=== PATIENT | female | born 1990 | race American Indian/Alaskan Native ===

== ENCOUNTER 2021-03-16 10:41 | Outpatient (CLI) | payer MEDICAID ==
[2021-03-16] MEDS ORDERED: LACTATED RINGERS 500 ML IV ONE (11:14)
[2021-03-16 14:20] LABS: Bilirubin,Urine NEG (Negative); Blood,Urine NEG (Negative); Color,Urine Yellow (Yellow); Mucus,Urine FEW /HPF; Protein,Urine <15 mg/dL mg/dL (Negative); Urobilinogen,Urine < 2.0 mg/dL (<2.0)
--- NOTE | 2021-03-16 15:51 | Ultrasound Report ---
ULTRASOUND OBSTETRIC LIMITED INDICATION / CLINICAL INFORMATION: labor. Clinical Gestational Age (GA) in weeks, days: 33 weeks 2 days TECHNIQUE: Transabdominal. COMPARISON: None available. FINDINGS: Single live intrauterine in breech presentation. heart rate measures 153 bpm. BREATHING MOVEMENT = 2 GROSS BODY MOVEMENT = 2 TONE = 2 QUALITATIVE AMNIOTIC FLUID VOLUME = 2 TOTAL BIOPHYSICAL SCORE = 8/8 AMNIOTIC FLUID INDEX (cm) = 15.7 (normal = 7-24 cm) PLACENTA: Left lateral placenta demonstrated. There is no evidence of placental abruption. The cervic al os is not included. ADDITIONAL FINDINGS: None. IMPRESSION: 1. Single live intrauterine in breech presentation. BPP of 8/8. 2. No significant abnormality. No evidence of placental abruption. Signer Name: Elder Bravo MD Signed: 03/16/2021 3:47 PM Workstation Name: [email or web address]
== END 2021-03-16 14:30 | disposition home or self-care (01) ==
LOC: TRG 10:41 → APU 10:43 → TRG 14:30
PROVIDERS: ATTEND Obstetrics & Gynecology
DX: Z34.93 Encounter for supervision of normal pregnancy, unspecified, third trimester (principal); Z3A.33 33 weeks gestation of pregnancy
CPT/HCPCS: 36415; 59025; 76815; 76819; 81001; 84112

== ENCOUNTER 2021-04-09 06:47 | Inpatient (IN) | payer MEDICAID ==
[2021-04-09] MEDS ORDERED: LACTATED RINGERS 1,000 ML ONE (07:16)
[2021-04-09] MEDS ORDERED: BICITRA ORAL LIQD 30ML PO NR (07:31)
[2021-04-09] MEDS ORDERED: METOCLOPRAMIDE 10 MG/2 ML INJ IV NR (07:31)
[2021-04-09] MEDS ORDERED: FAMOTIDINE 20 MG/2 ML INJ IV NR (07:31)
[2021-04-09] MEDS ORDERED: BUTORPHANOL 2 MG/1 ML INJ IV PRN (07:33)
[2021-04-09] MEDS ORDERED: ACETAMINOPHEN 325 MG TAB PO PRN ×2 (07:33→11:00)
[2021-04-09] MEDS ORDERED: NalbUPHINE 10 MG/1 ML INJ IV PRN (07:33)
[2021-04-09] MEDS ORDERED: LACTATED RINGERS 1,000 ML IV SCH ×2 (07:45→23:00)
[2021-04-09 07:54] LABS: Basophils % (Auto) 0.1 % (0.0-1.8); Eosinophils # (Auto) 0.1 K/mm3 (0.0-0.4); Eosinophils % (Auto) 0.8 % (0.0-4.3); Hemoglobin 12.6 gm/dl (10.1-14.3); Lymphocytes # (Auto) 2.1 K/mm3 (1.2-5.4); Lymphocytes % (Auto) 20.1 % (13.4-35.0); Mean Corpuscular HGB Conc 33 % (30-34); Mean Corpuscular Volume 84 fl (79-97); Monocytes # (Auto) 1.2 K/mm3 (0.0-0.8); Monocytes % (Auto) 11.6 % (0.0-7.3); Platelet Count 272 K/mm3 (140-440); Red Blood Count 4.52 M/mm3 (3.65-5.03); Red Cell Distribution Width 13.7 % (13.2-15.2)
[2021-04-09] MEDS ORDERED: ceFAZolin/STERILE WATER 2 GM/20 ML SYRINGE IV ONE (07:56)
[2021-04-09] MEDS ORDERED: KETAMINE/STERILE WATER 50 MG/ML SYRINGE ONE (07:56)
[2021-04-09] MEDS ORDERED: SUCCINYLCHOLINE CHLORIDE 200 MG/10 ML INJ MDV ONE (07:56)
[2021-04-09] MEDS ORDERED: propofoL 200 MG/20 ML VIAL IV ONE (07:56)
[2021-04-09] MEDS ORDERED: OXYTOCIN DRIP 30 UNITS/500 ML BAG IV SCH ×2 (08:00→11:00)
[2021-04-09] MEDS ORDERED: ceFAZolin/Water 2 GM/20 ML 2 GM/20 ML SYRINGE IV NR (08:00)
[2021-04-09] MEDS ORDERED: SODIUM CHLORIDE 0.9% IRR 1,500 ML BOTTLE IR ONE (08:00)
[2021-04-09] MEDS ORDERED: WATER FOR IRRIG STERILE 1,500 ML BOTTLE IR ONE (08:00)
[2021-04-09] MEDS ORDERED: SODIUM CHLORIDE 0.9% 500 ML 500 ML ONE (08:06)
[2021-04-09] MEDS ORDERED: dexAMETHasone 20 MG/5 ML VIAL ONE (08:14)
[2021-04-09] MEDS ORDERED: ONDANSETRON 4 MG/2 ML INJ ONE ×2 (08:15)
[2021-04-09] MEDS ORDERED: KETOROLAC 30 MG/1 ML INJ ONE (08:15)
[2021-04-09] MEDS ORDERED: HYDROmorphone 1 MG/1 ML INJ ONE ×2 (08:24)
[2021-04-09] MEDS ORDERED: LIDOCAINE MPF (2%) 20 MG/1 ML VIAL 5 ML ONE (08:42)
[2021-04-09] MEDS ORDERED: BUPIVACAINE/PF (0.25%) 2.5 MG/ML 30 ML VIAL INFILTRATI ONE ×2 (08:57)
--- NOTE | 2021-04-09 10:08 | Anesthesia Day of Surgery ---
Anesthesia Day of Surgery - Day of Surgery Patient Examined: Yes Patient H&P Reviewed: Yes Patient is NPO: No (3 AM) Beta Blockers: No Cardiac Clearance: No Pulmonary Clearance: No Denton's Test: Negative
--- NOTE | 2021-04-09 10:10 | Anesthesia Consultation ---
Anesthesia Consult and Med Hx Date of service: 04/09/21 - Airway Anesthetic Teeth Evaluation: Poor ROM Head & Neck: Adequate Mental/Hyoid Distance: Adequate Mallampati Class: Class III Intubation Access Assessment: Probably Good - Pulmonary Exam CTA: Yes - Cardiac Exam Cardiac Exam: RRR - Pre-Operative Health Status ASA Pre-Surgery Classification: ASA3, Emergency Proposed Anesthetic Plan: General - Pre-Anesthesia Comment Pre-Anesthesia Comments: csection, Breast- cyct removed - Pulmonary Hx Smoking: No Hx Asthma: No Hx Respiratory Symptoms: No SOB: No COPD: No Home Oxygen Therapy: No Hx Pneumonia: No Hx Sleep Apnea: No - Cardiovascular System Hx Hypertension: No Hx Coronary Artery Disease: No Hx Heart Attack/AMI: No Hx Angina: No Hx Percutaneous Transluminal Coronary Angioplasty (PTCA): No Hx Cardia Arrhythmia: No Hx Pacemaker: No Hx Internal Defibrillator: No Hx Valvular Heart Disease: No Hx Heart Murmur: No Hx Peripheral Vascular Disease: No - Central Nervous System Hx Neuromuscular Disorder: No Hx Seizures: No CVA: No Hx Back Pain: Yes Hx Psychiatric Problems: No - Gastrointestinal Hx Ulcer: No Hx Gastroesophageal Reflux Disease: Yes - Endocrine Hx Renal Disease: No Hx End Stage Renal Disease: No Hx Cirrhosis: No Hx Liver Disease: No Hx Insulin Dependent Diabetes: No Hx Non-Insulin Dependent Diabetes: No Hx Thyroid Disease: No Hx Hypothyroidism: No Hx Hyperthyroidism: No - Hematic Hx Anemia: No Hx Sickle Cell Disease: No - Other Systems Hx Alcohol Use: No Hx Substance Use: No Hx Cancer: No Hx Obesity: Yes
[2021-04-09] MEDS ORDERED: HYDROmorphone 1 MG/1 ML INJ IV PRN ×2 (10:11)
--- NOTE | 2021-04-09 10:11 | Progress Note ---
Regional Anesthesia Block - Regional Anesthesia Block Start Time: :31 Stop Time: :38 Performed By:: AMAURI MAE Procedure: Patient consented for TAP block for post surgical pain management. Patient identified, monitors placed, and time out performed. TAP identified bilaterally via ultrasound. Skin prepped bilaterally with [chlorhexidine] and [22g stimuplex] needle advanced to the TAP. [Marcaine 0.25% 30ml] injected under ultrasound guidance on the [left] side. [Marcaine 0.25% 30ml] injected under ultrasound guidance on the [right] side. Negative aspiration every 5mL, No change in heart rate or rhythm. Patient tolerated the procedure well. No apparent complications seen.
[2021-04-09] MEDS ORDERED: ONDANSETRON 4 MG/2 ML INJ IV PRN (10:30)
--- NOTE | 2021-04-09 10:46 | History and Physical Report ---
History of Present Illness Date of examination: 04/09/21 Date of admission: 04/09/21 07:33 Chief complaint: Vaginal bleeding and abdominal pain at 37 wks gestation. History of present illness: i was summoned by the hot metal chargerRonna, for FHR of 80bpm with reports of vaginal bleeding and abdominal pains all starting just before patient presented at 37 wks gestation. Past History Past Medical History: no pertinent history Past Surgical History: section, other (plastic surgical recontruction o f abdominal panus.) Family/Genetic History: none Social history: - Obstetrical History Expected Date of Delivery: 04/30/21 Actual Gestation: 37 Week(s) 0 Day(s) : 3 Para: 2 Medications and Allergies Allergies Allergy/AdvReac Type Severity Reaction Status Date / Time pollen extracts AdvReac Itching Verified 03/16/21 11:14 Active Meds: Active Medications Acetaminophen (Acetaminophen 325 Mg Tab) 650 mg PO Q4H PRN PRN Reason: Fever >100.5/MCQUEEN Hydrocodone Bitart/Acetaminophen (Hydrocodone/Acetaminophen 5-325 Mg Tab) each PO Q6H PRN PRN Reason: Pain, Moderate (4-6) Citric Acid/Sodium Citrate (Bicitra Oral Liqd 30ml) 30 ml PO ONCE NR Stop: 04/09/21 13:00 Last Admin: 04/09/21 07:49 Dose: 30 ml Documented by: Famotidine (Famotidine 20 Mg/2 Ml Inj) 20 mg IV ONCE NR Stop: 04/09/21 13:00 Last Admin: 04/09/21 07:49 Dose: 20 mg Documented by: Hydromorphone HCl (Hydromorphone 1 Mg/1 Ml Inj) 0.5 mg IV Q5M PRN PRN Reason: BREAK Hydromorphone HCl (Hydromorphone 1 Mg/1 Ml Inj) 0.5 mg IV Q4H PRN PRN Reason: breakthrough pain > 7/10 Lactated Ringer's (Lactated Ringers) 1,000 mls @ 2,250 mls/hr IV PREOP FLORI Stop: 04/10/21 08:12 Oxytocin/Sodium Chloride (Pitocin/Ns 30 Unit/500ml) 30 units in 500 mls @ 0 mls/hr IV TITR FLORI; Protocol Cefazolin Sodium (Ancef/Sterile Water 2 Gm/20 Ml) 2 gm in 20 mls @ 80 mls/hr IV PREOP NR; Protocol Stop: 04/09/21 13:00 Oxytocin/Sodium Chloride (Pitocin/Ns 30 Unit/500ml) 30 units in 500 mls @ 40 mls/hr IV TITR FLORI; Protocol Cefazolin Sodium (Ancef/Ns 1 Gm/50 Ml) 1 gm in 50 mls @ 100 mls/hr IV Q8H FLORI Stop: 04/09/21 19:29 Ibuprofen (Ibuprofen 600 Mg Tab) 600 mg PO Q6H PRN PRN Reason: Pain, Mild (1-3) Ibuprofen (Ibuprofen 800 Mg Tab) 800 mg PO Q6H PRN PRN Reason: Pain, Moderate (4-6) Ketorolac Tromethamine (Ketorolac 30 Mg/1 Ml Inj) 15 mg IV Q6H PRN PRN Reason: Pain, Mild (1-3) Stop: 04/14/21 10:30 Ketorolac Tromethamine (Ketorolac 30 Mg/1 Ml Inj) 30 mg IV Q6H PRN PRN Reason: Pain, Moderate (4-6) Stop: 04/14/21 10:30 Metoclopramide HCl (Metoclopramide 10 Mg/2 Ml Inj) 10 mg IV ONCE NR Stop: 04/09/21 13:00 Last Admin: 04/09/21 07:49 Dose: 10 mg Documented by: Morphine Sulfate (Morphine 4 Mg/1 Ml Inj) 4 mg IV Q4H PRN PRN Reason: Pain , Severe (7-10) Multi-Ingredient Ointment (Lanolin/Zinc/Dimethicone (Lansinoh) 7 Gm) 1 applic TP PRN PRN PRN Reason: dryness/cracking Naloxone HCl (Naloxone 0.4 Mg/1 Ml Inj) 0.2 mg IV Q2MIN PRN PRN Reason: Res Rate </= 8 or 02 SAT < 92% Naloxone HCl (Naloxone 0.4 Mg/1 Ml Inj) 0.1 mg IV Q2MIN PRN PRN Reason: Res Rate </= 8 or 02 SAT < 92% Ondansetron HCl (Ondansetron 4 Mg/2 Ml Inj) 4 mg IV Q8H PRN PRN Reason: Nausea And Vomiting Sodium Chloride (Sodium Chloride 0.9% 10 Ml Flush Syringe) 10 ml IV PRN NR Witch Elizabeth/Glycerin (Witch Elizabeth/ Glycerin Pad) 1 each TP PRN PRN PRN Reason: Hemorrhoids/cleansing/soothing Review of Systems All systems: negative Gastrointestinal: abdominal pain Genitourinary: vaginal bleeding - Vital Signs Vital signs: Vital Signs Temp Pulse Resp BP Pulse Ox 98.7 F 105 H 18 111/68 100 04/09/21 07:28 04/09/21 07:28 04/09/21 07:28 04/09/21 07:28 04/09/21 07:28 Temp Pulse Resp BP Pulse Ox 97.0 F L 89 16 133/86 100 04/09/21 09:19 04/09/21 10:00 04/09/21 10:00 04/09/21 10:00 04/09/21 10:00 - Physical Exam Breasts: Positive: deferred Lungs: Positive: Normal air movement Abdomen: Positive: tenderness Uterus: Positive: enlarged, tender Extremities: Positive: normal Deep Tendon Reflex Grade: Normal +2 (Due to the uncertainty of the situation, the patient was being readied for emergency surgery for a possible abruption.) Results Result Diagrams: 04/09/21 07:48 Abnormal lab results 04/09/21 Range/Units 07:48 [place] % (Auto) 11.6 H (0.0-7.3) % [place] # (Auto) 1.2 H (0.0-0.8) K/mm3 All other labs normal. Assessment and Plan - Patient Problems (1) 37 weeks gestation of Current Visit: Yes Status: Acute (2) Breech presentation Current Visit: Yes Status: Acute (3) Abruptio placenta Current Visit: Yes Status: Acute Plan to address problem: Emergency was called.
--- NOTE | 2021-04-09 10:59 | Procedure Note ---
OB Delivery Note - Delivery Date of Delivery: 04/09/21 Surgeon: GUME VÁZQUEZ Estimated blood loss: 300cc - Section Preop diagnosis: repeat , nonreassuring FHR tracing, other (Abruptio placenta) Postop diagnosis: same section procedure: section, repeat low transverse Disposition: PACU Complications: none - A Gender: Female
[2021-04-09] MEDS ORDERED: NALOXONE 0.4 MG/1 ML INJ IV PRN ×2 (11:00)
[2021-04-09] MEDS ORDERED: WITCH HAZEL/ GLYCERIN PAD TP PRN (11:00)
[2021-04-09] MEDS ORDERED: LANOLIN/ZINC/DIMETHICONE (LANSINOH) 7 GM TP PRN (11:00)
[2021-04-09] MEDS ORDERED: KETOROLAC 30 MG/1 ML INJ IV PRN ×2 (11:00)
[2021-04-09] MEDS ORDERED: MORPHINE 4 MG/1 ML INJ IV PRN (11:00)
[2021-04-09] MEDS: ceFAZolin/NS 1 GM/50 ML 1 GM/50 ML BAG IV SCH (17:27)
[2021-04-09] MEDS: HYDROcodone/ACETAMINOPHEN 5-325 MG TAB PO PRN (22:36)
[2021-04-10] MEDS: ceFAZolin/NS 1 GM/50 ML 1 GM/50 ML BAG IV SCH (00:06)
[2021-04-10 00:23] LABS: Hematocrit 33.3 % (30.3-42.9); Hemoglobin 11.1 gm/dl (10.1-14.3)
[2021-04-10] MEDS: IBUPROFEN 800 MG TAB PO PRN ×2 (02:46→10:53)
[2021-04-10] MEDS: HYDROcodone/ACETAMINOPHEN 5-325 MG TAB PO PRN (05:52)
--- NOTE | 2021-04-10 10:42 | Post Anesthesia Evaluation ---
- Post Anesthesia Evaluation Patient Participated: Yes Airway Patent: Yes Stable Respiratory Function: Yes Nausea/Vomiting: No Temp > 96.8F: Yes Pain Manageable: Yes Adequeate Hydration: Yes Anesthesia Complications: No Block Receding Appropriately: Yes Patient on Ventilator: No
--- NOTE | 2021-04-10 13:24 | Operative Report ---
Operative Report Operative Report: Date of surgery: April 09, 2021 Preoperative diagnoses: 2 previous cesareans, breech presentation, probable p lacental abruption. Postoperative diagnoses: The same. There was definite evidence of placenta abruption. Operation: Lower segment transverse delivery Surgeon: Poli Castellano MD Client Services Representative: Vanda Jauregui CRNA Anesthesia: General anesthesia Estimated blood loss: 300 mL Complications: None Findings: There was a live baby girl in complete breech presentation. About 150 cc of livery burgundy colored blood clots came out through the uterine incision upon entry into the subchorionic space. The ovaries and fallopian tubes were grossly normal. The uterus was grossly normal. No peritoneal adhesions were encountered within the pelvis. Procedure in detail: The patient was taken to the operating room and given a spinal block. Patient was placed in the straight supine position and a Izquierdo catheter was inserted. The patient was prepped in the abdomen. The drapes were placed. A timeout was done. With the go ahead from the dispatcher electric power, a Pfannenstiel incision was made. This incision was carried across the subcutaneous layer to the fascia which was also divided transversely. The recti abdominis muscle flaps were stripped from the fascia using a combination of blunt and sharp dissections. The muscles were in the midline to gain access to the anterior parietal peritoneum which was divided after excluding any underlying viscera. The access to the peritoneal cavity was then widened by manual stretching. The bladder blade was applied. The utero vesicle peritoneal flap was divided transversely allowing the bladder to be displaced caudally. The uterine incision was placed in the lower segment transversely. The uterine incision was carried to the decidual layer. The uterine incision was extended on both sides using the bandage scissors. The amniotic sac was ruptured with clear fluid. The buttocks were delivered through the incision by pulling with the fingers within the flexed thigh against the pelvis. Upon reaching close to the knees the thighs were each abducted to deliver the lower limbs through the incision. Using a wet towel wrapped around the waist traction was used to deliver the baby up to the shoulder blades. The Lovset maneuver was used to deliver the arms. The baby was then grasped and the ankles and positioned head down after which fundal pressure and traction on the ankles delivered the head through the incision. The airways were bulb suctioned beginning with the mouth. The umbilical cord was double clamped and divided. The baby was carefully transferred to the pediatric team. The placenta was manually removed from the uterine cavity. The uterine cavity was explored and was empty of any placental remnants. The uterine incision was repaired in 2 layers with #1 Vicryl. The surgical line on the uterus was hem ostatic. Blood and clots were cleared from the peritoneal cavity. The anterior parietal peritoneum was repaired with #1 Vicryl. The fascia was repaired with #1 Vicryl. The subcutaneous layer was made hemostatic using the Bovie before the skin was closed subcuticularly with 4-0 Vicryl. There were no complications. The estimated blood loss was 300 mL. All sponges and instrument counts were correct. Patient was safely transferred to the recovery room.
--- NOTE | 2021-04-10 13:26 | Progress Note ---
Assessment and Plan - Patient Problems (1) 37 weeks gestation of Current Visit: Yes Status: Acute (2) Breech presentation Current Visit: Yes Status: Acute (3) Abruptio placenta Current Visit: Yes Status: Acute (4) Postoperative state Current Visit: Yes Status: Acute Plan to address problem: Patient was comfortable. Encouraged to continue ambulating around the floor. Observation to continue. Subjective - Subjective Date of service: 04/10/21 Principal diagnosis: Status post day 1 Interval history: i was summoned by the supercharger mechanicRonna, for FHR of 80bpm with reports of vaginal bleeding and abdominal pains all starting just before patient presented at 37 wks gestation. Patient reports: appetite normal, voiding normally, pain well controlled, ambulating normally : doing well Objective - Vital Signs Latest vital signs: Vital Signs Temp Pulse Resp BP BP Pulse Ox 04/10/21 11:18 97.9 F 103 H 18 104/58 99 04/10/21 07:42 97.9 F 88 18 96/50 99 04/10/21 02:46 20 04/10/21 00:26 98.0 F 94 H 20 103/58 98 04/09/21 22:36 18 04/09/21 17:50 98 F 90 18 109/65 96 Intake and Output 04/09/21 04/10/21 04/10/21 23:59 07:59 15:59 Intake Total 1170 240 260 Output Total 2300 800 Balance -1130 -560 260 Intake: IV 50 ANCEF/NS 1 GM/50 ML 1 gm 50 In 50 ml @ 100 mls/hr IV Q8H [facility] Rx#:[id number] Oral 1120 240 260 Output: Urine 2300 800 Indwelling Catheter 1600 Uretheral (Izquierdo) 700 Void 800 Other: Total, Intake Amount 120 240 260 Total, Output Amount 600 600 # Voids Indwelling Catheter 1,400 Void 3 1 - Exam Breasts: Present: deferred Lungs: Present: Normal air movement Abdomen: Present: normal appearance, soft, normal bowel sounds Incision: Present: normal, dry, intact
[2021-04-10] MEDS: IBUPROFEN 600 MG TAB PO PRN ×2 (16:23→22:35)
[2021-04-11] MEDS: HYDROcodone/ACETAMINOPHEN 5-325 MG TAB PO PRN (08:22)
[2021-04-11 09:29] VITALS: BP 121/84
--- NOTE | 2021-04-11 10:22 | Progress Note ---
Assessment and Plan - Patient Problems (1) 37 weeks gestation of Current Visit: Yes Status: Acute (2) Breech presentation Current Visit: Yes Status: Acute (3) Abruptio placenta Current Visit: Yes Status: Acute (4) Postoperative state Current Visit: Yes Status: Acute Plan to address problem: Doing well. Ready for home. Subjective - Subjective Date of service: 04/11/21 Principal diagnosis: Status post day 2 Interval history: i was summoned by the charge preparation technician, Ronna, for FHR of 80bpm with reports of vaginal b leeding and abdominal pains all starting just before patient presented at 37 wks gestation. Status post Day 2. Doing well. Patient reports: appetite normal, voiding normally, pain well controlled, ambulating normally : doing well Objective - Vital Signs Latest vital signs: Vital Signs Temp Pulse Resp BP Pulse Ox 04/11/21 08:21 98.1 F 95 H 18 121/84 100 04/11/21 01:21 98.4 F 89 18 115/66 99 04/10/21 22:35 12 04/10/21 17:20 97.9 F 103 H 18 114/67 97 04/10/21 16:23 20 04/10/21 11:18 97.9 F 103 H 18 104/58 99 Intake and Output 04/10/21 04/11/21 04/11/21 23:59 07:59 15:59 Intake Total 500 480 Balance 500 480 Intake: Oral 500 Intake, Free Water 480 Other: Total, Intake Amount 500 # Voids Void 1 3 - Exam Breasts: Present: normal Lungs: Present: Normal air movement Abdomen: Present: normal appearance, soft, normal bowel sounds. Absent: distention Uterus: Present: normal, firm Extremities: Present: normal Deep Tendon Reflex Grade: Normal +2 Incision: Present: normal, dry, intact
[2021-04-11] MEDS: IBUPROFEN 800 MG TAB PO PRN (10:25)
--- NOTE | 2021-04-11 10:27 | Discharge Summary ---
Providers - Providers Date of Admission: 04/09/21 07:33 Date of discharge: 04/11/21 Attending physician: GUME VÁZQUEZ MD Primary care physician: GUME VÁZQUEZ MD Hospitalization Reason for admission: active labor, vaginal bleeding, rupture of membranes, other (ABD Pain) Delivery: Procedure: repeat low transverse Episiotomy: none Laceration: none Incision: normal, dry, intact complications: none Discharge diagnosis: IUP at term delivered baby: female Condition at discharge: Good Disposition: DC-01 TO HOME OR SELFCARE - Discharge Diagnoses (1) 37 weeks gestation of Status: Acute (2) Breech presentation Status: Acute (3) Abruptio placenta Status: Acute (4) Postoperative state Status: Acute Comment: Doing well. Plan - Provider Discharge Summary Activity: routine, no sex for 6 weeks, no heavy lifting 4 weeks, no strenuous exercise, other (no baths. May shower prn.) Diet: routine Instructions: routine Additional instructions: [] Smoking cessation referral if applicable(refer to patient education folder for contact #) [] Refer to [facility]'s [facility] Booklet Call your doctor immediately for: * Fever > 100.5 * Heavy vaginal bleeding ( >1 pad per hour) * Severe persistent headache * Shortness of breath * Reddened, hot, painful area to leg or breast * Drainage or odor from incision. * Keep incision clean and dry at all times and follow doctor's instructions regarding bathing/showering - Follow up plan Follow up: GUME VÁZQUEZ MD [Primary Care Provider] - 7 Days
== END 2021-04-11 14:40 | disposition home or self-care (01) | DRG 765 ==
LOC: TRG 06:47 → APU 06:49 → TRG 07:33 → APU 07:33 → OB 10:49
PROVIDERS: ADMIT Obstetrics & Gynecology; ATTEND Obstetrics & Gynecology
PROC: 10D00Z1 Extraction of Products of Conception, Low, Open Approach (ICD-10-PCS; principal; 2021-04-09)
PROC: 3E0T3BZ Introduction of Anesthetic Agent into Peripheral Nerves and Plexi, Percutaneous Approach (ICD-10-PCS; 2021-04-09)
DX: O32.1XX0 Maternal care for breech presentation, not applicable or unspecified (principal); O45.93 Premature separation of placenta, unspecified, third trimester; Z3A.37 37 weeks gestation of pregnancy; Z37.0 Single live birth; O99.62 Diseases of the digestive system complicating childbirth; O76 Abnormality in fetal heart rate and rhythm complicating labor and delivery; O99.214 Obesity complicating childbirth; K21.9 Gastro-esophageal reflux disease without esophagitis; O34.211 Maternal care for low transverse scar from previous cesarean delivery; Z20.822 Contact with and (suspected) exposure to COVID-19
CPT/HCPCS: 36415; 85014; 85018; 85025; 86592; 86706; 86762; 86850; 86900; 86901; 87806; G0378; A6250; J0330; J0690; J1100; J1170; J1885; J2405; J2704; J2765; J3490; J7040; J7120; U0003

== ENCOUNTER 2022-05-03 17:55 | Emergency (ER) | payer MEDICAID ==
[2022-05-03 20:27] VITALS: BP 122/74
--- NOTE | 2022-05-03 21:03 | XRay Report ---
Left ankle-3 views INDICATION: INJURY. COMPARISON: None available. IMPRESSION: No acute osseous abnormality. Normal alignment. No significant DJD. Soft tissues are u nremarkable. Signer Name: Josue George MD Signed: 05/03/2022 8:58 PM Workstation Name: [id number]
--- NOTE | 2022-05-03 23:38 | Emergency Department Report ---
ED Lower Extremity HPI - General Chief Complaint: Extremity Injury, Lower Stated Complaint: FOOT INJURY Time Seen by Provider: 05/03/22 22:25 Source: patient Mode of arrival: Ambulatory Limitations: No Limitations - History of Present Illness Complaint: ankle injury -: Gradual Injury: Ankle: Left Type of Injury: inversion Place: home Improves With: nothing Worsens With: nothing - Related Data Allergies Allergy/AdvReac Type Severity Reaction Status Date / Time pollen extracts AdvReac Itching Verified 03/16/21 11:14 ED Review of Systems ROS: Stated complaint: FOOT INJURY Other details as noted in HPI Comment: All other systems reviewed and negative ED Past Medical Hx - Past Medical History Hx Hypertension: No Hx Heart Attack/AMI: No Hx Congestive Heart Failure: No Hx Diabetes: No Hx Deep Vein Thrombosis: No Hx Liver Disease: No Hx Renal Disease: No Hx Sickle Cell Disease: No Hx Seizures: No Hx Asthma: No Hx COPD: No Hx HIV: No - Surgical History Hx Pacemaker: No Hx Internal Defibrillator: No - Social History Smoking Status: Never Smoker ED Physical Exam - General Limitations: No Limitations - Extremities Exam Extremities exam: Present: tenderness, joint swelling - Expanded Lower Extremity Exam Left Ankle exam: Present: swelling. Absent: abrasion, laceration, ecchymosis, crepidus, dislocation, erythema Foot/Toe exam: Present: tenderness. Absent: swelling, abrasion (Just below the lateral malleolus), ecchymosis ( pulses 2+ cap refills are brisk), deformity, erythema, foreign body, tenderness at base of 5th metatarsal, nail avulsion Neuro vascular tendon exam: Present: no vascular compromise ED Course Vital Signs 05/03/22 20:26 Temperature 98.0 F Pulse Rate 76 Respiratory 18 Rate Blood Pressure 122/74 O2 Sat by Pulse 99 Oximetry Critical care attestation.: If time is entered above; I have spent that time in minutes in the direct care of this critically ill patient, excluding procedure time. ED Disposition Clinical Impression: Ankle strain Disposition: 01 HOME / SELF CARE / HOMELESS Is pt being admited?: No Does the pt Need Aspirin: No Condition: Stable Instructions: Elastic Bandage and RICE Therapy, How to Use Cold Therapy, [id number], How to Use a Stirrup Ankle Brace Referrals: MORGAN GILLETTE NP [Primary Care Provider] - 3-5 Days
== END 2022-05-04 00:37 | disposition home or self-care (01) ==
LOC: ED 17:55
DX: S96.912A Strain of unspecified muscle and tendon at ankle and foot level, left foot, initial encounter (principal); X58.XXXA Exposure to other specified factors, initial encounter; Y93.89 Activity, other specified; Y92.89 Other specified places as the place of occurrence of the external cause; Y99.8 Other external cause status
CPT/HCPCS: 99283